=== PATIENT | male | born 1955 | race Caucasian/White ===

== ENCOUNTER 2016-08-02 08:14 | Inpatient (IN) | payer BC, MEDICARE ==
[2016-07-26 20:50] LABS: BASOPHILS 0.4 %; BASOPHILS ABSOLUTE 0.03 10/3/uL (0.0-0.16); EOSINOPHILS 3.7 %; EOSINOPHILS ABSOLUTE 0.29 10/3/uL (0.0-0.53); HEMATOCRIT 40.6 % (40.0-51.0); HEMOGLOBIN 13.1 g/dL (13.6-17.8); IMMATURE GRANULOCYTES 0.3 %; IMMATURE GRANULOCYTES ABSOLUTE 0.02 10/3/uL (0.0-0.11); LYMPHOCYTES 21.1 %; LYMPHOCYTES ABSOLUTE 1.65 10/3/uL (0.67-4.30); MEAN CORPUS HGB CONC 32.3 g/dL (32.0-36.0); MEAN PLATELET VOLUME 11.7 fL (9.2-13.0); MONOCYTES 9.2 %; MONOCYTES ABSOLUTE 0.72 10/3/uL (0.21-1.20); NEUTROPHILS 65.3 %; NEUTROPHILS ABSOLUTE 5.12 10/3/uL (2.02-8.40); PLATELET COUNT 245 10/3/uL (150-400); RBC DISTRIBUTION WIDTH 14.8 % (12.0-16.0); RED CELL COUNT 4.51 10/6/uL (4.7-6.1); WHITE BLOOD CELLS 7.8 10/3/uL (4.5-10.5)
[2016-07-26 20:54] LABS: MANUAL DIFF NO %
[2016-07-26 20:59] LABS: A/G RATIO 1.1 (0.7-1.9); ALBUMIN 3.4 G/DL (3.5-5.0); ALKALINE PHOSPHATASE 108 U/L (45-117); BUN (BLOOD UREA NITROGEN) 8 MG/DL (6-23); CALCIUM, SERUM 8.6 MG/DL (8.5-10.4); CHLORIDE, SERUM 109 MMOL/L (96-112); CO2 (CARBON DIOXIDE) 24 MMOL/L (24-34); GFR AFRICAN AMERICAN 117 ML/MIN (>=60); GFR NON AFRICAN AMERICAN 101 ML/MIN (>=60); GLOBULIN 3.2 G/DL (2.5-4.1); GLUCOSE, SERUM 87 MG/DL (60-99); POTASSIUM, SERUM 4.3 MMOL/L (3.5-5.3); SGOT(AST) 16 U/L (5-40); SGPT(ALT) 16 U/L (5-65); SODIUM, SERUM 143 MMOL/L (135-148); TOTAL BILIRUBIN 0.3 MG/DL (0-1.2); TOTAL PROTEIN 6.6 G/DL (6.0-8.5)
--- NOTE | ~2016-08-02 | PREOPHP ---
PreOp History and Physical [address] [address] NAME: GABBY HERNANDEZ : 53 STATUS : PRE IN PAT#: [id number] AGE: 61 ADM/REG DATE : MR#: [id number] REPORT SERV DATE: 08/01/16 DICTATED BY: DENAE MELISSA III DATE: 07/17/16 REPORT STATUS : Draft TRANSCRIBED BY: MODL DATE: 07/17/16 HISTORY OF PRESENT ILLNESS: This 61-year-old male comes to the operating room for open repair of a recurrent symptomatic periumbilical incisional hernia. The patient has an incisional hernia located just above his navel. This has been repaired on two separate occasions. He comes now for open repair of this hernia. PAST MEDICAL HISTORY: 1. Hypertension. 2. Hyperlipidemia. 3. Bipolar disorder. 4. Anxiety. 5. Arthritis. 6. Cerebrovascular accident in the past. 7. Hepatitis C. ALLERGIES: TO PENICILLIN. PAST SURGICAL HISTORY: Includes ventral hernia repair in 2013 with robotic techniques and laparoscopic cholecystectomy. SOCIAL HISTORY: The patient has a history of heavy tobacco abuse. He has a history of chronic narcotic use and chronic pain. REVIEW OF SYSTEMS: The patient complains of fatigue and easy bruising. PHYSICAL EXAMINATION: GENERAL: This is a male, in no acute distress. He is alert and oriented x3. VITAL SIGNS: Blood pressure 115/67, pulse 67, and temperature 97.2. HEENT: Unremarkable. Cranial nerves II through XII are normal. LUNGS: Clear. CARDIAC: Normal. ABDOMEN: Soft and nontender. He has incisional hernia beginning at the navel and continuing superiorly. The fascial defect is some 3 to 4 cm in size. The hernia is reducible. EXTREMITIES: Normal. ASSESSMENT: 1. A 61-year-old male with recurrent symptomatic periumbilical incisional hernia. 2. Hypertension. 3. Hyperlipidemia. 4. Bipolar disorder. 5. Anxiety. 6. Arthritis. 7. Cerebrovascular accident in the past. 8. Hepatitis C. PreOp History and Physical [address] [address] NAME: GABBY HERNANDEZ : 53 STATUS : PRE IN PAT#: [id number] AGE: 61 ADM/REG DATE : MR#: [id number] REPORT SERV DATE: 08/01/16 DICTATED BY: DENAE MELISSA III DATE: 07/17/16 REPORT STATUS : Draft TRANSCRIBED BY: HONG DATE: 07/17/16 9. Tobacco abuse. 10.History of chronic narcotic use. 11.Probable chronic obstructive pulmonary disease secondary to chronic tobacco abuse. PLAN: The patient comes to the operating room now for repair of this incisional hernia. The option of nonoperative management versus operative management and the pros and cons and advantages of each were discussed with the patient. The patient shows to have nonoperative management, he comes now for open repair of this incisional hernia. This procedure, the risks, benefits, and alternatives, including not limited to the risk for bleeding, infection, enterotomy, injury to any abdominal structure, postop small bowel obstruction, ileus, seroma formation, hematoma formation, recurrence of the hernia, infection of the mesh, or enterocutaneous fistula requiring removal of the mesh, and unforeseen complications including deep venous thrombosis, pulmonary embolus, myocardial infarction, stroke, pneumonia, and , have been fully and completely explained to the patient at length prior to surgery. The fact that this is a major operation with risk for major morbidity and mortality has been explained to the patient carefully. The expected length of recovery has been explained. His questions were answered. He understands the risks and agrees to surgery as planned. PIETRO/HONG Denae Melissa III, M.D. / [id number]
--- NOTE | ~2016-08-02 | OP ---
Record Of Operation [facility] [address] [place]. [address] NAME: GABBY HERNANDEZ : 53 STATUS : ADM IN PAT#: [id number] AGE: 61 ADM/REG DATE : 08/02/16 MR#: [id number] REPORT SERV DATE: 08/02/16 DICTATED BY: DENAE KUMAR III DATE: 08/02/16 REPORT STATUS : Draft TRANSCRIBED BY: MODL DATE: 08/02/16 DATE OF PROCEDURE: 08/02/2016 PREOPERATIVE DIAGNOSIS: Recurrent symptomatic incisional hernia. POSTOPERATIVE DIAGNOSES: Recurrent symptomatic incisional hernia, incarcerated recurrent symptomatic incisional hernia. PROCEDURE: Open repair of recurrent symptomatic incarcerated incisional hernia with Prolene mesh. SURGEON: Denae Kumar M.D. ANESTHESIA: General with intubation. COMPLICATIONS: None. ESTIMATED BLOOD LOSS: 20 mL. SPECIMENS: Old mesh and hernia sac. DRAINS: Jesse-Villa in subcutaneous tissue. BRIEF HISTORY: This 61-year-old male presented with a recurrent symptomatic incisional hernia. This is located in the supraumbilical area. This has been repaired on two separate occasions. The hernia was symptomatic and it was felt that open repair of the hernia was indicated. It had been repaired by the robotic technique in the past. Regarding the surgery, the procedure, risks, benefits, and alternatives, including but not limited to the risk for bleeding, infection, enterotomy, injuring to any abdominal structure, postop small bowel obstruction, ileus, recurrence of the hernia, seroma formation, hematoma formation, infection of the mesh, or enterocutaneous fistula requiring removal of the mesh and unforeseen complications including deep venous thrombosis, pulmonary embolus, myocardial infarction, stroke, pneumonia, and were fully and completely explained to the patient prior to the surgery. The fact that this was a major operation with risk for major morbidity and mortality was explained. The expected length of the recovery was explained. The patient's questions were answered. He understood the risks and agreed to the surgery as planned. DESCRIPTION OF PROCEDURE: After being properly identified and after discussing the risks of surgery with him again in the preoperative area, and identifying the hernia with him in the preoperative area, the patient was taken to the operating room and placed in the supine position on the operating room table. General anesthesia was administered. He was intubated without difficulty. The abdomen was prepped and draped sterilely in the usual fashion. After an appropriate "[facility]-out" [facility], a midline incision was made in the suprapubic area and continued to the naval, directly over the hernia. This was Record Of Operation [facility] [address] [place]. [address] NAME: GABBY HERNANDEZ : 53 STATUS : ADM IN PAT#: [id number] AGE: 61 ADM/REG DATE : 08/02/16 MR#: [id number] REPORT SERV DATE: 08/02/16 DICTATED BY: DENAE KUMAR III DATE: 08/02/16 REPORT STATUS : Draft TRANSCRIBED BY: MODL DATE: 08/02/16 directly over the previous incision. The incision was continued through the subcutaneous tissue. Hemostasis was controlled with the cautery. There was extensive scarring in the area. The incision was continued down to the fascial defect. The patient had extensive scarring. There were several pieces of mesh which had pulled loose and were disrupted from the fascia. There was omentum chronically incarcerated within the hernia. Using sharp dissection, the omentum was dissected free from the surrounding tissues. The hernia sac was opened. The hernia sac was excised. A portion of the mesh which was disrupted was adherent to the hernia sac and this was dissected free and resected with the hernia sac. The abdominal cavity was entered. There were dense adhesions between the omentum and the underside of the abdominal wall, and these adhesions were carefully divided. The patient has a history of cirrhosis and portal hypertension and had moderate bleeding from the vessels in the omentum which required cutting and tying with 2-0 silk sutures. Using sharp dissection, the skin and subcutaneous tissue around the fascial defect anteriorly were fully mobilized around the entire periphery of the defect. Similarly, the adhesions on the underside of the fascia posteriorly were mobilized so as to fully define the edges of the fascia anteriorly and posteriorly. Hemostasis was assured. The fascial defect was about 3 to 4 cm in size. We selected a lightweight ventral mesh. This was cut to the appropriate size. This was placed in the beneath the edges of the fascia posteriorly. The mesh was then secured to the edges of the fascia with short segments of interrupted #1 Prolene suture. Upon completion of this, the mesh lay nicely posterior to the fascia in an overlay fashion. The edges of the mesh were placed so as to overlap the edges of the fascia by 3 cm or so, around the entire periphery of the defect. Upon completion of this, the mesh lay nicely over the defect. It was not twisted or kinked in any way. It was not under any tension. Hemostasis was assured. The loose fascia was then closed over the mesh anteriorly with interrupted #1 Prolene sutures. This came together nicely with no tension creating a double layer repair. The wound was irrigated copiously with saline. Hemostasis was assured. A Jesse-Villa drain was placed through a separate stab wound placed in the subcutaneous tissue. The subcutaneous tissue was closed with a running 3-0 chromic suture. The skin was closed with a running subcuticular 4-0 Monocryl stitch. The incision was injected with 0.5% Marcaine. Dressings were applied. Anesthesia was reversed. The patient was taken to the recovery room in stable condition. He tolerated the procedure well. His family was informed the results of the surgery. The patient will remain in the hospital for postoperative care. This procedure was extremely difficult secondary to the adhesions which were very vascular with significant bleeding which extended the length of procedure by 75%. For this reason, modifier 22 was added to the procedure code. RHMarah/HONG Denae Kumar III, M.D. Record Of Operation [address] [address] NAME: GABBY HERNANDEZ : 53 STATUS : ADM IN PAT#: [id number] AGE: 61 ADM/REG DATE : 08/02/16 MR#: [id number] REPORT SERV DATE: 08/02/16 DICTATED BY: DENAE KUMAR III DATE: 08/02/16 REPORT STATUS : Draft TRANSCRIBED BY: HONG DATE: 08/02/16 / [id number] CC: Denae Kumar III, M.D.
[~2016-08-02 08:14] MED LIST: ADVAIR100 INH; AMB10 PO; ASA5GR PO; ASAB PO; ATIVAN2 MG PO; ATV1 PO; CELEXA40 MG PO; DCN100 PO; DULERA 100 MCG/13 GM INH; FLOMAX4 PO; IRON; KLONO1 PO; KLOR-CON 1010 MEQ PO; L20 PO; LAMICTAL200 MG PO; LOP100 PO; LOP25 PO; LORTAB 5 PO; LUNESTA3 MG PO; MSCONT15 PO; MSCONTIN PO; NEUR300 PO; NEUR400 PO; NEUR600 PO; NEXIUM40 PO; NIACIN 500 PO; NORCO1 TA2 PO; NORV10 PO; P5 PO; PLAVIX PO; PR25 PO; PRAV10 PO; PRILOSEC40 MG PO; PRIN20 PO; PROZ10 PO; REMERON30 MG PO; SEROQUEL50 MG PO; TOPXL100 PO; ULTRAM50 PO; V5 PO; VALIUM10 MG PO; VITAMIN B12; XANAX1 MG PO; ZOCOR80 MG PO
[2016-08-02 18:53] LABS: HEMATOCRIT 38.5 % (40.0-51.0); HEMOGLOBIN 12.4 g/dL (13.6-17.8)
[2016-08-03 01:23] LABS: HEMOGLOBIN 12.4 g/dL (13.6-17.8)
[2016-08-03 06:48] LABS: BASOPHILS 0.1 %; BASOPHILS ABSOLUTE 0.01 10/3/uL (0.0-0.16); EOSINOPHILS 0.1 %; EOSINOPHILS ABSOLUTE 0.01 10/3/uL (0.0-0.53); HEMATOCRIT 36.2 % (40.0-51.0); IMMATURE GRANULOCYTES 0.3 %; IMMATURE GRANULOCYTES ABSOLUTE 0.03 10/3/uL (0.0-0.11); LYMPHOCYTES 13.9 %; LYMPHOCYTES ABSOLUTE 1.53 10/3/uL (0.67-4.30); MEAN CORPUS HGB CONC 33.1 g/dL (32.0-36.0); MEAN CORPUSCULAR HEMOGLOB 28.8 pg (26.0-34.0); MEAN PLATELET VOLUME 10.7 fL (9.2-13.0); MONOCYTES ABSOLUTE 0.88 10/3/uL (0.21-1.20); NEUTROPHILS 77.6 %; NEUTROPHILS ABSOLUTE 8.53 10/3/uL (2.02-8.40); PLATELET COUNT 250 10/3/uL (150-400); RED CELL COUNT 4.16 10/6/uL (4.7-6.1)
[2016-08-03 06:55] LABS: MANUAL DIFF NO %
[2016-08-03 07:06] LABS: CALCIUM, SERUM 8.5 MG/DL (8.5-10.4); CHLORIDE, SERUM 108 MMOL/L (96-112); CO2 (CARBON DIOXIDE) 24 MMOL/L (24-34); CREATININE 0.64 MG/DL (0.70-1.30); GFR AFRICAN AMERICAN 122 ML/MIN (>=60); GFR NON AFRICAN AMERICAN 105 ML/MIN (>=60); POTASSIUM, SERUM 4.5 MMOL/L (3.5-5.3); SODIUM, SERUM 140 MMOL/L (135-148)
[2016-08-03 07:12] LABS: BUN (BLOOD UREA NITROGEN) 4 MG/DL (6-23); GLUCOSE, SERUM 122 MG/DL (60-99)
[2016-08-03] MEDS ORDERED: PERCOCET 7.5/321 TAB PO (07:47)
[2016-12-17] MEDS ORDERED: NEUR300 PO (16:56)
[2016-12-17] MEDS ORDERED: ULTRAM50 PO (16:56)
[2016-12-17] MEDS ORDERED: MSCONTIN PO (16:56)
[2016-12-17] MEDS ORDERED: NORV10 PO (16:57)
[2016-12-17] MEDS ORDERED: LAMICTAL200 MG PO (16:57)
[2016-12-17] MEDS ORDERED: LUNESTA3 MG PO (16:57)
[2016-12-17] MEDS ORDERED: REMERON30 MG PO (16:57)
[2016-12-17] MEDS ORDERED: PRAV10 PO (16:58)
[2016-12-17] MEDS ORDERED: FLOMAX4 PO (16:58)
[2016-12-17] MEDS ORDERED: KLOR-CON 1010 MEQ PO (16:58)
[2016-12-17] MEDS ORDERED: LOP50 PO (16:58)
[2016-12-24] MEDS ORDERED: PROTONIX PO (11:03)
== END 2016-08-03 12:08 | disposition home or self-care (01) | DRG 336 ==
LOC: SDC/OF 08:14 → 5SO 14:51
PROVIDERS: Surgery
PROC: 0DNS0ZZ (ICD-10-PCS; 2016-08-02)
PROC: 0WUF0JZ Supplement Abdominal Wall with Synthetic Substitute, Open Approach (ICD-10-PCS; principal; 2016-08-02 10:00)
DX: K43.0 Incisional hernia with obstruction, without gangrene (principal); K76.6 Portal hypertension; I10 Essential (primary) hypertension; G62.9 Polyneuropathy, unspecified; K66.0 Peritoneal adhesions (postprocedural) (postinfection); Z88.0 Allergy status to penicillin; Z79.899 Other long term (current) drug therapy; Z79.82 Long term (current) use of aspirin; F17.210 Nicotine dependence, cigarettes, uncomplicated; E78.5 Hyperlipidemia, unspecified; J45.998 Other asthma; Z87.442 Personal history of urinary calculi; F41.9 Anxiety disorder, unspecified; F31.9 Bipolar disorder, unspecified; B19.20 Unspecified viral hepatitis C without hepatic coma; Z86.73 Personal history of transient ischemic attack (TIA), and cerebral infarction without residual deficits; Z98.890 Other specified postprocedural states; G89.29 Other chronic pain; K74.60 Unspecified cirrhosis of liver; Z28.21 Immunization not carried out because of patient refusal
CPT/HCPCS: 36415; 80048; 80053; 85014; 85018; 85025; 87641; 88302; A9270-GY; C1781; J1170; J2250; J2405; J2710; J3010; J3370

== ENCOUNTER 2017-01-17 06:17 | Inpatient (IN) | payer BC, MEDICARE ==
[2017-01-14 20:50] LABS: PARTIAL THROMBO TIME 39.1 SEC (22.5-37.2); PROTIME (NOT ORD) 13.5 SEC (12.0-14.5)
[~2017-01-17] VITALS: Ht 185.4 cm; Wt 91.2 kg
--- NOTE | ~2017-01-17 | CN ---
Consultation Report [facility] [address] [place]. [address] NAME: GABBY HERNANDEZ : 53 STATUS : ADM IN PAT#: [id number] AGE: 61 ADM/REG DATE : 01/17/17 MR#: [id number] REPORT SERV DATE: 01/20/17 DICTATED BY: FERMIN LORD DATE: 01/19/17 REPORT STATUS : Draft TRANSCRIBED BY: MODRosas DATE: 01/19/17 HOSPITALIST CONSULTATION. DATE OF CONSULTATION: 01/18/2017 REASON FOR CONSULTATION: New onset atrial fibrillation with RVR. HISTORY OF PRESENT ILLNESS: This is an awake, alert, and oriented, very pleasant, 61-year- old, male, who was admitted on 01/17/[address] Jose Luis Melissa to undergo a partial gastrectomy with gastrojejunostomy on 01/17/2017 for chronic gastric outlet obstruction. This procedure was completed without complication, and the patient has been resting since procedure. This evening he developed new onset atrial fibrillation with RVR with a rate up to the 130s. The patient denies history of previous dysrhythmias including atrial fibrillation, and denies symptoms. The patient did not experience chest pain, palpitations, syncope, dizziness, vision disturbances, or edema prior to or at the time of change in rhythm. The patient does report an increased anxiety at night generally and worse this evening. At this time, the patient is resting comfortably in no acute distress. PAST MEDICAL HISTORY: 1. Hypertension. 2. Hyperlipidemia. 3. Bipolar disorder. 4. Anxiety. 5. Arthritis. 6. History of CVA without residual, 2012. 7. History of hepatitis C, that was reported resolved by his PCP. PAST SURGICAL HISTORY: 1. Partial gastrectomy with gastrojejunostomy, 01/17/2017. 2. Hernia surgeries, 2011, 2012, and 2016. 3. Cholecystectomy, 06/2016. 4. Kidney stone surgery, 1992 and 09/2009. 5. Right shoulder rotator cuff repair, several, most recent in 1997. 6. Left shoulder rotator cuff repair x3, most recent in 2003. 7. Tonsillectomy and adenoidectomy at age 12. The patient's PCP is Dr. Naun Berrios in [place]. He follows with Dr. Elizabeth Don, neurologist. SOCIAL HISTORY: The patient does live at home with his spouse. He smokes cigarettes 1/2 to 1 pack per day and has done so since age 16. He denies alcohol or illicit drug use. FAMILY HISTORY: Mother has history of pancreatic cancer. Father had a history of dementia. Paternal grandfather had history of stroke. Consultation Report [facility] [id number] [place]. [address] NAME: GABBY HERNANDEZ : 53 STATUS : ADM IN PAT#: [id number] AGE: 61 ADM/REG DATE : 01/17/17 MR#: [id number] REPORT SERV DATE: 01/20/17 DICTATED BY: FERMIN LORD DATE: 01/19/17 REPORT STATUS : Draft TRANSCRIBED BY: HONG DATE: 01/19/17 ALLERGIES: PENICILLIN. HOME MEDICATIONS: 1. Amlodipine 10 mg p.o. daily. 2. Lunesta 3 mg p.o. q.h.s. 3. Neurontin 300 mg p.o. four times daily. 4. Lamictal 400 mg p.o. daily. 5. Lopressor 50 mg p.o. twice daily. 6. Remeron 30 mg p.o. q.h.s. 7. MS Contin 30 mg p.o. q.12 hours. 8. Protonix 40 mg p.o. twice daily. 9. Potassium chloride 10 mEq p.o. q.h.s. 10.Pravastatin 10 mg p.o. q.h.s. 11.Flomax 0.4 mg p.o. q.h.s. 12.Ultram 50 mg p.o. twice daily. REVIEW OF SYSTEMS: A complete 10-point review of systems was negative except as per HPI. PHYSICAL EXAMINATION: VITAL SIGNS: T 97.7, P 84, RR 16, BP 152/74, and SpO2 of 95% on 3 L nasal cannula. GENERAL: A well-appearing male, in no acute distress. NEURO: Awake, alert, and oriented x3 without focal deficit. PERRL at 4. Moves all extremities x4 spontaneously and to command. HEENT: Normocephalic and atraumatic without lymphadenopathy. NECK: Supple. No JVD. Normal thyroid. LUNGS: CTA in all lung dick with normal respiratory effort. CV: Rapid irregular rate and rhythm noted. S1-S2 auscultated without murmur. ABDOMEN: Soft, round, and nontender. Bowel sounds hypoactive in all quadrants. EXTREMITIES: No cyanosis or edema. Cap refill within normal limits. Distal pulses equal and palpable. PSYCH: Normal affect. SKIN: Clean, dry, and intact with mucous membranes pink and moist. MIKALA drain to bulb suction midline lower abdomen. PERTINENT LABORATORY DATA: Sodium 141, potassium 4.6, glucose 115, and calcium 8.2. WBC is 11.7. PERTINENT IMAGING: EKG shows atrial fibrillation with RVR with a rate of 132, reviewed also by collaborating physician Dr. Beltran Serrato. ASSESSMENT AND PLAN: 1. Atrial fibrillation with rapid ventricular response. This is acute and new onset. We will continue the patient's p.o. metoprolol dose. We will also trial a low-dose IV Consultation Report [facility] [address] [place]. [address] NAME: GABBY HERNANDEZ : 53 STATUS : ADM IN PAT#: [id number] AGE: 61 ADM/REG DATE : 01/17/17 MR#: [id number] REPORT SERV DATE: 01/20/17 DICTATED BY: FERMIN LORD DATE: 01/19/17 REPORT STATUS : Draft TRANSCRIBED BY: HONG DATE: 01/19/17 metoprolol up to three doses now. We will repeat EKG in a.m. We will also obtain labs in the a.m. to monitor electrolytes. We will continue Med/Surg Telemetry and consider Cardiology consult if indicated upon further evaluation. 2. Hypertension. This is chronic and currently well controlled, so we will continue his current treatment and monitor labs, adding p.r.n. antihypertensives if indicated. 3. Anxiety. Again this is chronic. We will continue his current treatment, monitor labs, and continue telemetry. Encourage the patient to employee nonpharmacologic antianxiety relief measures. 4. History of cerebrovascular accident. This occurred approximately in 2012 and the patient has no deficits from the cerebrovascular accident. We will continue his current treatment, monitor labs, and continue telemetry. 5. Post gastrectomy. The patient is postop day #1. We will follow with primary team and adjust treatment as indicated. Thank you for this consult. We are pleased to follow this patient with you. This consult was completed through thorough review of [employer], old records, [employer], and current chart, as well as thorough interview with the patient. This consult was also completed in conjunction with the dictated for collaborating physician Dr. Beltran Serrato. DICTATED BY: Meenakshi Black NP Adamaris/HONG Fermin Lord MD / [id number] CC: Navneet Yi III, MD
--- NOTE | ~2017-01-17 | PREOPHP ---
PreOp History and Physical [address] [place]. [address] NAME: GABBY HERNANDEZ : 53 STATUS : PRE IN [facility]#: [id number] AGE: 61 ADM/REG DATE : MR#: [id number] REPORT SERV DATE: 01/17/17 DICTATED BY: DENAE MELISSA III DATE: 12/31/16 REPORT STATUS : Draft TRANSCRIBED BY: MODL DATE: 12/31/16 HISTORY OF PRESENT ILLNESS: This 61-year-old male comes to the operating room for partial gastrectomy for chronic gastric outlet obstruction. The patient complains of a several week history of intermittent episodes of upper abdominal pain, nausea, and vomiting. This has been associated with a 40-pounds weight loss. The patient was recently admitted to the hospital emergently. His workup including upper endoscopy which showed near complete gastric outlet obstruction was secondary to a stricture of the duodenal bulb. This was felt to be secondary to chronic ulcer disease. The endoscope could not be passed through the stricture and the patient did not respond to medical management. The patient has been on TPN for nutritional support. This was in anticipation of surgery. He comes now for laparotomy with partial gastrectomy versus gastrojejunostomy, possible jejunal feeding tube placement. The patient has had no fever or chills. He describes intermittent nausea, vomiting, and inability to tolerate any solid or significant liquid food. PAST MEDICAL HISTORY: 1. Hypertension. 2. Hyperlipidemia. 3. Bipolar disorder. 4. Anxiety. 5. Arthritis. 6. History of cerebrovascular accident in the past. 7. History of hepatitis C. MEDICATIONS: 1. Amlodipine. 2. Gabapentin. 3. Potassium. 4. Lamotrigine. 5. Lisinopril. 6. Metoprolol. 7. Morphine. 8. Mirtazapine. 9. Pravastatin. 10.Tamsulosin. PAST SURGICAL HISTORY: Includes laparoscopic cholecystectomy, repair of incisional hernia, repair of umbilical hernia, and bilateral shoulder surgery. SOCIAL HISTORY: The patient has a longstanding history of tobacco abuse. FAMILY HISTORY: Positive for pancreatic cancer and stroke. REVIEW OF SYSTEMS: The patient's 14-point review of systems is otherwise unremarkable. PreOp History and Physical [address] [place]. [address] NAME: GABBY HERNANDEZ : 53 STATUS : PRE IN PAT#: [id number] AGE: 61 ADM/REG DATE : MR#: [id number] REPORT SERV DATE: 01/17/17 DICTATED BY: DENAE MELISSA III DATE: 12/31/16 REPORT STATUS : Draft TRANSCRIBED BY: HONG DATE: 12/31/16 PHYSICAL EXAMINATION: OBJECTIVE PHYSICAL EXAM: GENERAL: This is a chronically ill-appearing male, in no acute distress. He is alert and oriented x3. HEENT: Unremarkable. Cranial nerves 2 through 12 were normal. LUNGS: Clear. CARDIAC EXAM: Normal. ABDOMEN: Soft and nontender. EXTREMITIES: Normal with no edema. The patient has muscle wasting of the extremities and torso. VITAL SIGNS: Blood pressure 105/72, pulse 64, and temperature 98.7. LABORATORY: Upper endoscopy is as above. Previous CT scan of the abdomen and pelvis shows a large amount of food debris and retained contrast material in the stomach, consistent with gastric outlet obstruction with no other unusual findings noted. ASSESSMENT: 1. A 61-year-old male with chronic near complete gastric outlet obstruction, most likely secondary to peptic ulcer disease with stricture of the duodenum. 2. History of chronic pain, requiring chronic narcotics. 3. Hypertension. 4. Tobacco abuse. 5. Hyperlipidemia. 6. Bipolar disorder. 7. Anxiety. 8. History of cerebrovascular accident in the past. 9. Probable chronic lung disease secondary to tobacco abuse. 10.History of hepatitis C. PLAN: The patient has failed to respond to nonoperative management including bowel rest with antacid therapy. He comes now for laparotomy with partial gastrectomy versus gastrojejunostomy with possible jejunal feeding tube placement. The fact that this is a major operation with risk for major morbidity and mortality has been explained. The fact that his nutritional status could interfere with his healing with the rate of complications even though he has been repleted with TPN for several weeks, has been explained. The procedure risks, benefits, and alternatives, including but not limited to the risk of bleeding, infection, enterotomy, injury to abdominal structure, postop small bowel obstruction, ileus, incisional hernia, dehiscence, anastomotic leak, resulting in sepsis and , gastroparesis which could be chronic gastric outlet obstruction recurrence, leakage from the duodenal stump, injury of the common bile duct or pancreas and unforeseen complications including deep venous thrombosis, pulmonary embolus, myocardial infarction, stroke, pneumonia, and , have been fully and completely explained to the patient prior to surgery. The fact that this is a major operation with risk for major morbidity and mortality has been explained. The expected length of recovery has been explained. The patient's questions have been answered. He clearly understands the risks and agrees to the surgery as planned. PreOp History and Physical [address] [address] NAME: GABBY HERNANDEZ : 53 STATUS : PRE IN PAT#: [id number] AGE: 61 ADM/REG DATE : MR#: [id number] REPORT SERV DATE: 01/17/17 DICTATED BY: DENAE MELISSA III DATE: 12/31/16 REPORT STATUS : Draft TRANSCRIBED BY: HONG DATE: 12/31/16 Marah/HONG Denae Melissa III, M.D. / [id number] CC: Navneet Yi III, MD
--- NOTE | ~2017-01-17 | OP ---
Record Of Operation [facility] [address] [place]. [address] NAME: GABBY HERNANDEZ : 53 STATUS : ADM IN [facility]#: [id number] AGE: 61 ADM/REG DATE : 01/17/17 MR#: [id number] REPORT SERV DATE: 01/17/17 DICTATED BY: DENAE KUMAR III DATE: 01/17/17 REPORT STATUS : Draft TRANSCRIBED BY: MODRosas DATE: 01/17/17 DATE OF PROCEDURE: 01/17/2017 PREOPERATIVE DIAGNOSIS: Chronic gastric outlet obstruction secondary to stenosis and stricture of the pylorus. POSTOPERATIVE DIAGNOSIS: Chronic gastric outlet obstruction secondary to stenosis and stricture of the pylorus. PROCEDURE: Distal partial gastrectomy with Billroth II gastrojejunostomy. ANESTHESIA: General with intubation. COMPLICATIONS: None. ESTIMATED BLOOD LOSS: 20 mL. SPECIMENS: Antrum of stomach or distal stomach. DRAINS: Jesse-Villa in abdominal cavity, [place] in subcutaneous tissue. LAP AND SPONGE COUNT: Correct x3. BRIEF HISTORY: This 61-year-old male presented with evidence for near complete gastric outlet obstruction secondary to stenosis or stricture of the pylorus. This was felt to be secondary to chronic peptic ulcer disease. The patient had failed to respond to nonoperative management and was not a candidate for dilatation due to the severity of the stricture. The patient had received several weeks of TPN for nutritional support prior to surgery and was now felt that a partial gastrectomy was indicated. This procedure, the risks, benefits, and alternatives, including, but not limited to the risk for bleeding, infection, enterotomy, injury to abdominal structure, postop small bowel obstruction, ileus, incisional hernia, dehiscence, anastomotic leak, requiring reoperation, duodenal stump leak resulting in peritonitis, sepsis, and , gastroparesis, gastric outlet obstruction, marginal ulcer, dumping syndrome, and unforeseen complications including deep venous thrombosis, pulmonary embolus, myocardial infarction, stroke, pneumonia, and , were fully and completely explained to the patient and his family prior to surgery. The fact that this was a major operation with risk for major morbidity and mortality has been explained. Expected length of recovery was explained. The patient had questions, which were answered. He fully and completely understood the risks, and agreed to surgery as planned. DESCRIPTION OF PROCEDURE: After being properly identified and after discussing risks of surgery with the patient's family again in the preoperative area, he was taken to the operating room and placed in supine position on the operating room table. General anesthesia was administered. He was intubated without difficulty. An NG tube and Huynh catheter were inserted. The abdomen was prepped and draped sterilely in the usual fashion. Record Of Operation [facility] [address] [place]. [address] NAME: GABBY HERNANDEZ : 53 STATUS : ADM IN PAT#: [id number] AGE: 61 ADM/REG DATE : 01/17/17 MR#: [id number] REPORT SERV DATE: 01/17/17 DICTATED BY: DENAE KUMAR III DATE: 01/17/17 REPORT STATUS : Draft TRANSCRIBED BY: HONG DATE: 01/17/17 After an appropriate "time-out" per [facility] standards, a midline incision was made from just beneath the xiphoid process to just above the umbilicus. The incision was continued through the subcutaneous tissue. Hemostasis was controlled with cautery. The abdominal cavity was entered. There were dense adhesions between the omentum and underside of the abdominal wall just above the navel, where an incisional hernia had been previously repaired. Using sharp dissection, these adhesions were carefully divided. The abdomen was inspected. The stomach appeared to be somewhat chronically dilated. The duodenum was unremarkable with no evidence for malignancy or palpable mass. There is no evidence of carcinomatosis or peritoneal implants. We turned our attention to the stomach. The gastrocolic ligament was divided along the greater curve of the stomach, beginning along the distal body of the stomach and continued to just beyond the pylorus. Similarly, the lesser curve of the stomach was exposed by dividing the lesser omentum along the similar portion of the stomach. We selected a point for division of the stomach proximally, at the junction of the antrum with the body. The stomach was divided in this location with a GI stapler. We then divided the duodenum, just beyond the pylorus with a TA-60 stapler. In this way, the distal stomach or antrum was removed and sent for permanent pathology. The duodenal stump was oversewn carefully with interrupted 3-0 silk sutures. This resulted in good inversion of the stump. We then performed an end gastric to side jejunal anastomosis in a Billroth II fashion. A window was made in the mesentery to the avascular portion of the transverse colon. The proximal small bowel just beyond the ligament Treitz was brought through this. The anastomosis was performed in two layers, using interrupted 3-0 sutures on the outer posterior layer, running 3-0 chromic suture on the inner layer, and interrupted 3-0 silk sutures on the outer anterior layer of the stomach. This was done using the majority of the divided edge of the stomach. Upon completion of this, the anastomosis was widely patent to palpation. It was not twisted or kinked in anyway and was not under any tension. The NG tube was positioned just proximal to the anastomosis. The anastomosis again was inspected and the efferent and afferent limbs were inspected to be certain that the bowel was not twisted or kinked in any way. The anastomosis was secured around the mesentery defect with several 3-0 silk sutures. Evicel glue was placed over the needle duodenal stump. The right upper quadrant was irrigated copiously with saline. Hemostasis was assured. A Jesse-Villa drain was brought through a separate stab wound to the right incision placed near the duodenal stump. Hemostasis was assured. The fascia was closed with a running looped #1 PDS suture. Subcutaneous tissue was closed with running 3-0 chromic suture over a [place] drain, which was brought out through the inferior aspect of the incision. The skin was closed with running subcuticular 4-0 Monocryl stitch. Dressings were applied. Anesthesia was reversed, and the patient was taken to the recovery room in stable condition. He tolerated the procedure well. His family was informed of the results of surgery. He will remain in the hospital for postoperative care. Record Of Operation [facility] [address] [place]. [address] NAME: GABBY HERNANDEZ : 53 STATUS : ADM IN [facility]#: [id number] AGE: 61 ADM/REG DATE : 01/17/17 MR#: [id number] REPORT SERV DATE: 01/17/17 DICTATED BY: DENAE KUMAR III DATE: 01/17/17 REPORT STATUS : Draft TRANSCRIBED BY: HONG DATE: 01/17/17 PIETRO/HONG Denae Kumar III, M.D. / [id number] CC: Navneet Yi III, M.D.
--- NOTE | ~2017-01-17 | CN ---
Consultation Report [facility] [address] [place]. [address] NAME: GABBY HERNANDEZ : 53 STATUS : ADM IN PAT#: [id number] AGE: 61 ADM/REG DATE : 01/17/17 MR#: [id number] REPORT SERV DATE: 01/20/17 DICTATED BY: ANIBAL ESQUIVEL DATE: 01/20/17 REPORT STATUS : Draft TRANSCRIBED BY: MODRosas DATE: 01/20/17 DATE OF CONSULTATION: HISTORY OF PRESENT ILLNESS: The patient is a 61-year-old white male, who is status post surgery for gastric outlet obstruction. He now has paroxysmal atrial fibrillation. He denies chest pain or shortness of breath. A nuclear scan done in 2015 shows no evidence of ischemia. PAST MEDICAL HISTORY: Remarkable for hypertension, hyperlipidemia, TIA, peptic ulcer disease, and tobacco abuse. SOCIAL HISTORY: The patient has smoked a pack of cigarettes a day until recently. FAMILY HISTORY: Positive for coronary disease. REVIEW OF SYSTEMS: The patient has had some nausea and vomiting as well as anorexia over the past three months. He denies cough, wheeze, sputum production, diarrhea, or dysuria. PHYSICAL EXAMINATION: GENERAL: The patient is in no acute distress. HEENT: Unremarkable. NECK: Shows no jugular venous distention with good carotid upstroke. CHEST: Clear. CARDIOVASCULAR: The PMI is not displaced. S1 is variable. S2 is narrowly split. No gallop is present. ABDOMEN: Remarkable for the presence of abdominal binder. EXTREMITIES: Show no cyanosis, clubbing, or edema. SKIN: Warm and dry with no pallor or icterus. NEURO/PSYCH: The patient is oriented x3 with appropriate affect. DIAGNOSTIC DATA: EKG shows atrial fibrillation with LVH by voltage criteria. IMPRESSION: 1. Paroxysmal atrial fibrillation. 2. Hypertension. 3. Hyperlipidemia. 4. Status post a gastric outlet obstruction surgery. RECOMMENDATION: 1. Start p.o. Betapace. 2. Wean Cardizem. 3. Check echocardiogram. 4. We will not start anticoagulation until cleared with surgery. Consultation Report [facility] [address] [place]. [address] NAME: GABBY HERNANDEZ : 53 STATUS : ADM IN PAT#: [id number] AGE: 61 ADM/REG DATE : 01/17/17 MR#: [id number] REPORT SERV DATE: 01/20/17 DICTATED BY: ANIBAL ESQUIVEL DATE: 01/20/17 REPORT STATUS : Draft TRANSCRIBED BY: MODL DATE: 01/20/17 Thank you very much for this consultation. SS/HONG Anibal Esquivel M.D., F.A.C.C. / [id number] CC: Navneet Yi III, MD
[~2017-01-17 06:17] MED LIST changes: +LOP50 PO; +PERCOCET 7.5/321 TAB PO; +PROTONIX PO
[2017-01-18 06:30] LABS: BASOPHILS 0 %; EOSINOPHILS 0 %; HEMATOCRIT 34.9 % (40.0-51.0); HEMOGLOBIN 11.6 g/dL (13.6-17.8); IMMATURE GRANULOCYTES 0.4 %; IMMATURE GRANULOCYTES ABSOLUTE 0.05 10/3/uL (0.0-0.11); LYMPHOCYTES 9.4 %; MEAN CORPUS HGB CONC 33.2 g/dL (32.0-36.0); MEAN CORPUSCULAR HEMOGLOB 29.3 pg (26.0-34.0); MEAN CORPUSCULAR VOLUME 88.1 fL (80-100); MONOCYTES 9.6 %; MONOCYTES ABSOLUTE 1.12 10/3/uL (0.21-1.20); NEUTROPHILS 80.6 %; NEUTROPHILS ABSOLUTE 9.43 10/3/uL (2.02-8.40); RBC DISTRIBUTION WIDTH 14.7 % (12.0-16.0); RED CELL COUNT 3.96 10/6/uL (4.7-6.1)
[2017-01-18 06:32] LABS: MANUAL DIFF NO %; PLATELET COUNT 164 10/3/uL (150-400); WHITE BLOOD CELLS 11.7 10/3/uL (4.5-10.5)
[2017-01-18 06:46] LABS: A/G RATIO 0.7 (0.7-1.9); ALBUMIN 2.7 G/DL (3.5-5.0); ALKALINE PHOSPHATASE 72 U/L (45-117); BUN (BLOOD UREA NITROGEN) 15 MG/DL (6-23); CALCIUM, SERUM 8.2 MG/DL (8.5-10.4); CHLORIDE, SERUM 109 MMOL/L (96-112); CO2 (CARBON DIOXIDE) 24 MMOL/L (24-34); CREATININE 0.51 MG/DL (0.70-1.30); GFR AFRICAN AMERICAN 134 ML/MIN (>=60); GFR NON AFRICAN AMERICAN 115 ML/MIN (>=60); GLUCOSE, SERUM 115 MG/DL (60-99); POTASSIUM, SERUM 4.6 MMOL/L (3.5-5.3); SGOT(AST) 12 U/L (5-40); SGPT(ALT) 15 U/L (5-65); SODIUM, SERUM 141 MMOL/L (135-148); TOTAL BILIRUBIN 0.4 MG/DL (0-1.2); TOTAL PROTEIN 6.7 G/DL (6.0-8.5)
[2017-01-19 06:42] LABS: HEMOGLOBIN 12.7 g/dL (13.6-17.8); MEAN CORPUSCULAR HEMOGLOB 29.1 pg (26.0-34.0); MEAN CORPUSCULAR VOLUME 88.1 fL (80-100); MEAN PLATELET VOLUME 11.9 fL (9.2-13.0); PLATELET COUNT 169 10/3/uL (150-400); RBC DISTRIBUTION WIDTH 14.6 % (12.0-16.0); RED CELL COUNT 4.37 10/6/uL (4.7-6.1); WHITE BLOOD CELLS 9.1 10/3/uL (4.5-10.5)
[2017-01-19 06:44] LABS: HEMATOCRIT 38.5 % (40.0-51.0); MANUAL DIFF YES %
[2017-01-19 06:54] LABS: A/G RATIO 0.7 (0.7-1.9); ALBUMIN 2.9 G/DL (3.5-5.0); ALKALINE PHOSPHATASE 76 U/L (45-117); CHLORIDE, SERUM 105 MMOL/L (96-112); CO2 (CARBON DIOXIDE) 25 MMOL/L (24-34); CREATININE 0.42 MG/DL (0.70-1.30); GFR AFRICAN AMERICAN 145 ML/MIN (>=60); GFR NON AFRICAN AMERICAN 125 ML/MIN (>=60); GLOBULIN 4.2 G/DL (2.5-4.1); GLUCOSE, SERUM 102 MG/DL (60-99); SGOT(AST) 17 U/L (5-40); SGPT(ALT) 15 U/L (5-65); SODIUM, SERUM 137 MMOL/L (135-148); TOTAL BILIRUBIN 0.4 MG/DL (0-1.2); TOTAL PROTEIN 7.1 G/DL (6.0-8.5)
[2017-01-19 06:55] LABS: BUN (BLOOD UREA NITROGEN) 9 MG/DL (6-23)
[2017-01-19 07:55] LABS: BAND NEUTROPHILS 1 %; EOSINOPHILS 5 %; EOSINOPHILS ABSOLUTE (CALC) 0.46 10/3/uL (0.0-0.53); LYMPHOCYTES 23 %; LYMPHOCYTES ABSOLUTE (CALC) 2.09 10/3/uL (0.67-4.30); MONOCYTES 8 %; MONOCYTES ABSOLUTE (CALC) 0.73 10/3/uL (0.21-1.20); NEUTROPHILS ABSOLUTE (CALC) 5.82 10/3/uL (2.02-8.40); PLATELET ESTIMATE ADQ (ADEQUATE); SEGMENTED NEUTROPHIL (0) 63 %; TOTAL NUCLEATED CELLS 100
[2017-01-19 07:56] LABS: RBC MORPHOLOGY NORM (NORMAL)
[2017-01-20 05:00] LABS: BASOPHILS 0.4 %; BASOPHILS ABSOLUTE 0.03 10/3/uL (0.0-0.16); EOSINOPHILS 2.4 %; HEMATOCRIT 39.6 % (40.0-51.0); HEMOGLOBIN 13.2 g/dL (13.6-17.8); IMMATURE GRANULOCYTES 0.4 %; IMMATURE GRANULOCYTES ABSOLUTE 0.03 10/3/uL (0.0-0.11); LYMPHOCYTES ABSOLUTE 1.32 10/3/uL (0.67-4.30); MEAN CORPUS HGB CONC 33.3 g/dL (32.0-36.0); MEAN CORPUSCULAR HEMOGLOB 29.6 pg (26.0-34.0); MEAN CORPUSCULAR VOLUME 88.8 fL (80-100); MEAN PLATELET VOLUME 11.9 fL (9.2-13.0); MONOCYTES 11.8 %; MONOCYTES ABSOLUTE 0.97 10/3/uL (0.21-1.20); PLATELET COUNT 157 10/3/uL (150-400); RBC DISTRIBUTION WIDTH 14.6 % (12.0-16.0); RED CELL COUNT 4.46 10/6/uL (4.7-6.1); WHITE BLOOD CELLS 8.3 10/3/uL (4.5-10.5)
[2017-01-20 05:04] LABS: MANUAL DIFF NO %
[2017-01-20 05:11] LABS: BUN (BLOOD UREA NITROGEN) 9 MG/DL (6-23); CALCIUM, SERUM 9.1 MG/DL (8.5-10.4); CHLORIDE, SERUM 103 MMOL/L (96-112); CREATININE 0.45 MG/DL (0.70-1.30); GFR AFRICAN AMERICAN 141 ML/MIN (>=60); GFR NON AFRICAN AMERICAN 121 ML/MIN (>=60); GLUCOSE, SERUM 104 MG/DL (60-99); PHOSPHORUS, SERUM 2.8 MG/DL (2.5-4.5); POTASSIUM, SERUM 4.2 MMOL/L (3.5-5.3); SODIUM, SERUM 131 MMOL/L (135-148)
[2017-01-20 05:12] LABS: CO2 (CARBON DIOXIDE) 20 MMOL/L (24-34)
[2017-01-21 06:35] LABS: BASOPHILS 0.4 %; BASOPHILS ABSOLUTE 0.03 10/3/uL (0.0-0.16); EOSINOPHILS 4.3 %; EOSINOPHILS ABSOLUTE 0.34 10/3/uL (0.0-0.53); HEMATOCRIT 38.3 % (40.0-51.0); HEMOGLOBIN 12.8 g/dL (13.6-17.8); IMMATURE GRANULOCYTES 0.8 %; IMMATURE GRANULOCYTES ABSOLUTE 0.06 10/3/uL (0.0-0.11); LYMPHOCYTES 17.8 %; LYMPHOCYTES ABSOLUTE 1.42 10/3/uL (0.67-4.30); MANUAL DIFF NO %; MEAN CORPUS HGB CONC 33.4 g/dL (32.0-36.0); MEAN CORPUSCULAR HEMOGLOB 29.3 pg (26.0-34.0); MEAN CORPUSCULAR VOLUME 87.6 fL (80-100); MEAN PLATELET VOLUME 12.5 fL (9.2-13.0); MONOCYTES 13.6 %; MONOCYTES ABSOLUTE 1.09 10/3/uL (0.21-1.20); NEUTROPHILS 63.1 %; NEUTROPHILS ABSOLUTE 5.05 10/3/uL (2.02-8.40); PLATELET COUNT 182 10/3/uL (150-400); RED CELL COUNT 4.37 10/6/uL (4.7-6.1)
[2017-01-21 06:46] LABS: CALCIUM, SERUM 8.6 MG/DL (8.5-10.4); CHLORIDE, SERUM 106 MMOL/L (96-112); CO2 (CARBON DIOXIDE) 24 MMOL/L (24-34); GFR AFRICAN AMERICAN 125 ML/MIN (>=60); GFR NON AFRICAN AMERICAN 108 ML/MIN (>=60); GLUCOSE, SERUM 96 MG/DL (60-99); POTASSIUM, SERUM 4.2 MMOL/L (3.5-5.3)
[2017-01-21 06:47] LABS: BUN (BLOOD UREA NITROGEN) 14 MG/DL (6-23); PHOSPHORUS, SERUM 3.8 MG/DL (2.5-4.5); SODIUM, SERUM 139 MMOL/L (135-148)
[2017-01-22 05:57] LABS: BASOPHILS 0.3 %; BASOPHILS ABSOLUTE 0.02 10/3/uL (0.0-0.16); EOSINOPHILS 5.9 %; HEMATOCRIT 34.6 % (40.0-51.0); HEMOGLOBIN 11.6 g/dL (13.6-17.8); IMMATURE GRANULOCYTES 0.9 %; IMMATURE GRANULOCYTES ABSOLUTE 0.06 10/3/uL (0.0-0.11); LYMPHOCYTES ABSOLUTE 1.89 10/3/uL (0.67-4.30); MANUAL DIFF NO %; MEAN CORPUS HGB CONC 33.5 g/dL (32.0-36.0); MEAN CORPUSCULAR HEMOGLOB 29.3 pg (26.0-34.0); MEAN CORPUSCULAR VOLUME 87.4 fL (80-100); MEAN PLATELET VOLUME 11.8 fL (9.2-13.0); MONOCYTES 13.2 %; MONOCYTES ABSOLUTE 0.89 10/3/uL (0.21-1.20); NEUTROPHILS 51.7 %; PLATELET COUNT 185 10/3/uL (150-400); RBC DISTRIBUTION WIDTH 14.1 % (12.0-16.0); RED CELL COUNT 3.96 10/6/uL (4.7-6.1); WHITE BLOOD CELLS 6.8 10/3/uL (4.5-10.5)
[2017-01-22 06:08] LABS: CALCIUM, SERUM 8.8 MG/DL (8.5-10.4); CHLORIDE, SERUM 107 MMOL/L (96-112); CO2 (CARBON DIOXIDE) 24 MMOL/L (24-34); CREATININE 0.53 MG/DL (0.70-1.30); GFR AFRICAN AMERICAN 131 ML/MIN (>=60); GFR NON AFRICAN AMERICAN 113 ML/MIN (>=60); GLUCOSE, SERUM 108 MG/DL (60-99); SODIUM, SERUM 139 MMOL/L (135-148)
[2017-01-22 06:09] LABS: BUN (BLOOD UREA NITROGEN) 7 MG/DL (6-23)
[2017-01-22] MEDS ORDERED: ZOFRAN4 PO (11:22)
[2017-01-22] MEDS ORDERED: ELIQUIS 5 MG TAB5 MG PO (11:23)
[2017-01-22] MEDS ORDERED: SORINE80 MG PO (11:23)
== END 2017-01-22 14:18 | disposition home or self-care (01) | DRG 327 ==
LOC: ENRESERVDT → ENRESERVTM → ENRESERV → 5SO 06:17 → SDC/OF 06:17 → PACU 10:13 → 5SO 12:58
PROVIDERS: Internal Medicine; Surgery
PROC: 0D160ZA Bypass Stomach to Jejunum, Open Approach (ICD-10-PCS; 2017-01-17)
PROC: 3E0T3CZ (ICD-10-PCS; 2017-01-17)
PROC: 0DB60ZZ Excision of Stomach, Open Approach (ICD-10-PCS; principal; 2017-01-17 07:45)
DX: K31.1 Adult hypertrophic pyloric stenosis (principal); F11.20 Opioid dependence, uncomplicated; I10 Essential (primary) hypertension; I48.0 Paroxysmal atrial fibrillation; E78.5 Hyperlipidemia, unspecified; F31.9 Bipolar disorder, unspecified; F41.9 Anxiety disorder, unspecified; F17.210 Nicotine dependence, cigarettes, uncomplicated; N40.0 Benign prostatic hyperplasia without lower urinary tract symptoms; Z86.73 Personal history of transient ischemic attack (TIA), and cerebral infarction without residual deficits; Z86.19 Personal history of other infectious and parasitic diseases; Z79.899 Other long term (current) drug therapy; Z98.890 Other specified postprocedural states; Z80.8 Family history of malignant neoplasm of other organs or systems; Z82.3 Family history of stroke
CPT/HCPCS: 36415; 71010; 80048; 80053; 83735; 83880; 84100; 85025; 85610; 85730; 86850; 86900; 86901; 88307; 88341; 88342; 93005; 93306; 97116-GP; 97161-GP; A9270-GY; C9113; G8978-CL-GP; G8979-CJ-GP; J1170; J1580; J1885; J2250; J2270; J2405; J2710; J2795; J3010; J3475